=== PATIENT | male | born 1945 | race Caucasian/White ===

== ENCOUNTER 2020-10-09 14:30 | Emergency (ER) | payer MEDICARE, OTHER ==
[~2020-10-09] VITALS: Ht 172.7 cm; Wt 76.9 kg
[2020-10-09] MEDS ORDERED: LIDOCAINE-MPF 1%, 5ML ONE (15:08)
[2020-10-09] MEDS ORDERED: DIPH,PERTUSS(ACELL),TET VAC/PF 0.5 ML IM-VACC ONE ×2 (15:08→15:30)
[2020-10-09] MEDS ORDERED: CEFAZOLIN 1,000 MG IM ONE (15:30)
[2020-10-09] MEDS ORDERED: CEFAZOLIN 1,000 MG ONE (15:54)
[2020-10-09] MEDS ORDERED: HYDROcodone/APAP 5/325 TABLET PO ONE (16:00)
[2020-10-09] MEDS ORDERED: ONDANSETRON ODT 4 MG PO ONE (16:00)
[2020-10-09] MEDS ORDERED: LIDOCAINE-MPF 1%, 5ML INFIL ONE (16:00)
[2020-10-09] MEDS ORDERED: ONDANSETRON ODT 4 MG ONE (16:05)
[2020-10-09] MEDS ORDERED: HYDROcodone/APAP 5/325 TABLET ONE (16:06)
[2020-10-09] MEDS ORDERED: NEOSPORIN OINT. PKT 1 PACKET ONE (16:11)
[2020-10-09 16:35] VITALS: BP 138/92
--- NOTE | 2020-10-09 16:36 | NUR ---
PT VERBALIZES UNDERSTANDING OF DISCHARGE INSTRUCTIONS. PT HAS A RIDE HOME FROM HIS DAUGHTER.
== END 2020-10-09 16:55 | disposition home or self-care (01) ==
LOC: ED 16:31
DX: S61.215A Laceration without foreign body of left ring finger without damage to nail, initial encounter (principal); I10 Essential (primary) hypertension; Z88.9 Allergy status to unspecified drugs, medicaments and biological substances; Z90.89 Acquired absence of other organs; Z90.49 Acquired absence of other specified parts of digestive tract; Z79.899 Other long term (current) drug therapy; X58.XXXA Exposure to other specified factors, initial encounter; Y93.89 Activity, other specified; Y92.89 Other specified places as the place of occurrence of the external cause; Y99.8 Other external cause status
CPT/HCPCS: 12041; 73140; 90471; 90715; 96372; 99284; J0690; Q0162